=== PATIENT | female | born 1965 | race Caucasian/White ===

== ENCOUNTER 2017-09-03 12:16 | Inpatient (IN) ==
[2017-09-03] MEDS ORDERED: ZOFRAN 4 MG/2 ML IVP PRN (12:36)
[2017-09-03] MEDS ORDERED: DEMEROL 25 MG/ML SYRINGE IVP SCH (13:00)
[2017-09-03 13:06] LABS: BASOPHILS % (AUTO) 0.7 % (0.0-3.0); EOSINOPHILS # (AUTO) 0.1 K/ul (0.0-0.7); EOSINOPHILS % (AUTO) 3.1 % (0.0-7.0); HEMATOCRIT 40.8 % (37.0-47.0); HEMOGLOBIN 13.9 g/dl (12.0-16.0); IMMATURE GRANULOCYTE % (AUTO) 0.2 % (0.0-5.0); LYMPHOCYTES # (AUTO) 2.2 K/uL (0.60-3.4); LYMPHOCYTES % (AUTO) 51.2 (10.0-50.0); MEAN CORPUSCULAR HEMOGLOBIN 29.3 pg (27.0-31.0); MEAN CORPUSCULAR HGB CONC 34.1 (31.8-35.4); MEAN CORPUSCULAR VOLUME 85.9 fl (81.0-99.0); MONOCYTES # (AUTO) 0.3 K/uL (0.4-2.0); MONOCYTES % (AUTO) 7.1 (0-10); NEUTROPHILS # (AUTO) 1.6 K/ul (2.0-6.9); NEUTROPHILS % (AUTO) 37.7; PLATELET COUNT 192 10^3/uL (140-440); RED BLOOD COUNT 4.75 10^6/ul (4.20-5.40)
[2017-09-03 13:21] VITALS: BMI 39.4
[2017-09-03 13:26] LABS: ALBUMIN 3.9 g/dL (3.4-5.0); ALBUMIN/GLOBULIN RATIO 1.18; ANION GAP 13.9; BILIRUBIN,TOTAL 0.41 mg/dL (0.00-1.20); BUN/CREATININE RATIO 14.47; CALCIUM 9.8 mg/dL (8.2-10.2); CREATININE 0.76 mg/dL (0.60-1.30); POTASSIUM 3.9 mmol/L (3.5-5.10); TOTAL PROTEIN 7.2 g/dL (6.4-8.2)
[2017-09-03] MEDS: CARAFATE PO SCH ×3 (14:06→20:03)
[2017-09-03] MEDS: PROTONIX IV IVP SCH ×2 (14:06→20:08)
[2017-09-03] MEDS: LOVENOX SUBCUT SCH (14:07)
[2017-09-03] MEDS: SODIUM CHLORIDE 1,000 ML IV SCH (14:07)
[2017-09-03] MEDS: DEMEROL 25 MG/ML VIAL IVP SCH ×2 (14:07→17:46)
--- NOTE | 2017-09-03 14:59 | CT ---
EXAM: CT ABDOMEN AND PELVIS HISTORY: Mid abdominal pain and bloating for 3 days. Previous appendectomy and hysterectomy. TECHNIQUE: CT abdomen and pelvis without intravenous contrast. Images were reconstructed using 5 mm section thickness. Reformations were prepared. COMPARISON: None FINDINGS: Diagnostic limitations exist without including contrast enhanced images. No focal hepatic or splenic lesions identified. Gallbladder, pancreas and adrenal glands appear normal. The kidneys and ureter s appear normal. Minimal atherosclerotic disease. Stomach appears normal. No appendix is identified consistent with given history. A few loops of mini felecia fluid dilated small bowel with a few scattered air-fluid levels. No excess fecal retention. C olon caliber was within normal limits. No uterus was identified. Urinary bladder appear normal. No ascites or inflammatory infiltration of the abdominal fat. No ventral abdominal wall hernia. The bones reveal stabilization hardware at the lumbosacral junctio n. At least mild bilateral sacroiliitis is suggested. Lung bases are free of infiltrate. No pneumo peritoneum is seen. IMPRESSION: A few loops of minimally fluid dilated small bowel with a few scattered air-fluid level s. This is nonspecific and could indicate mild ileus or early enteritis. No current evidence of antoni l obstruction. Exam otherwise within normal limits.
[2017-09-03 15:47] LABS: BILIRUBIN,URINE Negative (NEGATIVE); KETONES,URINE Negative (NEGATIVE); LEUKOCYTE ESTERASE ,URINE 2+ (NEGATIVE); NITRITE,URINE Negative (NEGATIVE); PROTEIN,URINE Negative (NEGATIVE); URINE, BLOOD Negative (NEGATIVE)
[2017-09-03 15:51] LABS: ADD URINE MICROSCOPIC YES
[2017-09-03 15:52] LABS: BACTERIA,URINE 1+ (NOT PRESENT)
[2017-09-03] MEDS: GI COCKTAIL PO PRN (17:46)
[2017-09-03 20:06] LABS: TROPONIN I 0.011 ng/ml (0.0000-0.4000)
[2017-09-04] MEDS: GI COCKTAIL PO PRN ×3 (00:11→17:21)
[2017-09-04] MEDS: DEMEROL 25 MG/ML VIAL IVP SCH ×4 (00:11→17:59)
[2017-09-04] MEDS: SODIUM CHLORIDE 1,000 ML IV SCH ×2 (03:29→17:21)
[2017-09-04 05:00] LABS: BASOPHILS % (AUTO) 0.8 % (0.0-3.0); EOSINOPHILS # (AUTO) 0.1 K/ul (0.0-0.7); EOSINOPHILS % (AUTO) 3.7 % (0.0-7.0); HEMATOCRIT 37.3 % (37.0-47.0); IMMATURE GRANULOCYTE % (AUTO) 0.3 % (0.0-5.0); LYMPHOCYTES # (AUTO) 2.3 K/uL (0.60-3.4); LYMPHOCYTES % (AUTO) 59.5 (10.0-50.0); MEAN CORPUSCULAR HEMOGLOBIN 29.9 pg (27.0-31.0); MEAN CORPUSCULAR HGB CONC 34.9 (31.8-35.4); MEAN CORPUSCULAR VOLUME 85.7 fl (81.0-99.0); MONOCYTES # (AUTO) 0.2 K/uL (0.4-2.0); MONOCYTES % (AUTO) 6.1 (0-10); NEUTROPHILS # (AUTO) 1.1 K/ul (2.0-6.9); NEUTROPHILS % (AUTO) 29.6; PLATELET COUNT 171 10^3/uL (140-440); RED BLOOD COUNT 4.35 10^6/ul (4.20-5.40); WHITE BLOOD COUNT 3.78 K/ul (4.6-10.2)
[2017-09-04 05:26] LABS: ALBUMIN 3.4 g/dL (3.4-5.0); ALBUMIN/GLOBULIN RATIO 1.21; ANION GAP 9.1; BILIRUBIN,TOTAL 0.44 mg/dL (0.00-1.20); BUN/CREATININE RATIO 11.76; CALCIUM 9.4 mg/dL (8.2-10.2); CREATININE 0.68 mg/dL (0.60-1.30); POTASSIUM 4.1 mmol/L (3.5-5.10); TOTAL PROTEIN 6.2 g/dL (6.4-8.2)
[2017-09-04 05:34] LABS: TROPONIN I 0.011 ng/ml (0.0000-0.4000)
[2017-09-04] MEDS: CARAFATE PO SCH ×4 (05:42→20:20)
[2017-09-04] MEDS: LOVENOX SUBCUT SCH (09:09)
[2017-09-04] MEDS: PROTONIX IV IVP SCH ×2 (09:09→20:20)
[2017-09-05] MEDS: DEMEROL 25 MG/ML VIAL IVP SCH ×4 (00:49→18:03)
[2017-09-05 05:16] LABS: BASOPHILS % (AUTO) 0.5 % (0.0-3.0); EOSINOPHILS # (AUTO) 0.1 K/ul (0.0-0.7); EOSINOPHILS % (AUTO) 2.3 % (0.0-7.0); HEMATOCRIT 36.8 % (37.0-47.0); HEMOGLOBIN 12.8 g/dl (12.0-16.0); LYMPHOCYTES # (AUTO) 2.1 K/uL (0.60-3.4); LYMPHOCYTES % (AUTO) 52.9 (10.0-50.0); MEAN CORPUSCULAR HEMOGLOBIN 29.4 pg (27.0-31.0); MEAN CORPUSCULAR HGB CONC 34.8 (31.8-35.4); MEAN CORPUSCULAR VOLUME 84.4 fl (81.0-99.0); MONOCYTES # (AUTO) 0.3 K/uL (0.4-2.0); MONOCYTES % (AUTO) 6.6 (0-10); NEUTROPHILS # (AUTO) 1.5 K/ul (2.0-6.9); NEUTROPHILS % (AUTO) 37.7; PLATELET COUNT 160 10^3/uL (140-440); RED BLOOD COUNT 4.36 10^6/ul (4.20-5.40); WHITE BLOOD COUNT 3.95 K/ul (4.6-10.2)
[2017-09-05 05:40] LABS: ALBUMIN 3.3 g/dL (3.4-5.0); ALBUMIN/GLOBULIN RATIO 1.18; BILIRUBIN,TOTAL 0.37 mg/dL (0.00-1.20); BUN/CREATININE RATIO 11.11; CREATININE 0.63 mg/dL (0.60-1.30); TOTAL PROTEIN 6.1 g/dL (6.4-8.2)
[2017-09-05] MEDS: CARAFATE PO SCH ×4 (05:42→22:06)
[2017-09-05] MEDS: SODIUM CHLORIDE 1,000 ML IV SCH ×2 (05:42→22:08)
[2017-09-05] MEDS: PROTONIX IV IVP SCH ×2 (09:42→22:06)
[2017-09-05] MEDS: LOVENOX SUBCUT SCH (09:45)
[2017-09-05] MEDS: GI COCKTAIL PO PRN (14:52)
[2017-09-06] MEDS: DEMEROL 25 MG/ML VIAL IVP SCH ×2 (01:18→05:46)
[2017-09-06] MEDS: CARAFATE PO SCH (05:46)
[2017-09-06 06:27] VITALS: BP 114/76; TEMP 98
[2017-09-06] MEDS: PROTONIX IV IVP SCH (08:12)
[2017-09-06] MEDS: LOVENOX SUBCUT SCH (08:12)
--- NOTE | 2017-09-08 07:34 | DS ---
DATE OF SERVICE: 09/06/17 FINAL DIAGNOSIS: 1. Intractable nausea and vomiting 2. Acute gastritis 3. History of heart murmur 4. Hypertension 5. History of pancreatitis 6. Rheumatoid arthritis 7. Diabetes DISCHARGE INSTRUCTIONS: Discharge the patient home. Continue home medications. Will followup at the [facility] within one week. MEDICATIONS AT DISCHARGE: Carisoprodol Diltiazem Lasix Hydrocodone Metformin Zofran Paroxetine Elidel Pravachol NEW PRESCRIPTIONS: Protonix 40mg Po daily Carafate 1 gram AC and HS Zofran 4mg twice a day for 10 days. DIET INSTRUCTIONS: Soft diet for 2-3 days. ACTIVITY: As much as tolerated. SMOKING: Former Smoker DISEASE SPECIFIC EDUCATION: Gastritis Intractable nausea and vomiting Needing for endoscopy been discussed and verbalized understanding. HOSPITAL COURSE: Otilia Feliciano who is a 52 year old female came to the office for the sever abdominal pain and nausea and not able to keep anything down. The patient has a history of pancreatitis and gastritis for which the patient was worried and going to get evaluated. In review of epigastric pain 10 out of 10 I admitted the patient from the office directly. Amylase and Lipase was normal. CT of abdomen and pelvis showed ileus like kind of picture. The patient was kept NPO and started on the Protonix and Carafate. GI cocktail helped the patient. Then advanced the clear liquids slowly and she tolerated that well without any complications but still she kept having that nausea feeling. Soft diet was tolerated well. Meanwhile the patient was up and about and did not have anymore vomiting. As patient was doing good at that time the patient being discharged home. Advised strictly continue with the soft diet for 3-4 days. Continue Carafate, Protonix and Zofran as needed. TIME SPENT: MORE THAN 55 MINUTES. MTDD
--- NOTE | 2017-09-08 09:46 | PN ---
DATE OF SERVICE: 09/05/17 SUBJECTIVE: The patient was admitted with acute gastritis and the intractable gastritis. The patient was admitted from the [facility] directly as the patient was not able to keep anything down and nausea intractable. CT scan did show the ileus like picture. The patient was kept NPO and started on the Carafate, GI cocktail and Demerol which did help the patient. Clear liquids were started and then advanced to the soft diet which she tolerated. Did not have any problems. Amylase and Lipase was negative. The patient was feeling better today. REVIEW OF SYSTEMS: CONSTITUTIONAL: No fever, no chills. HEENT: Normal. ENDOCRINE: No weight gain, no weight loss. CVS: No angina symptoms. No CHF symptoms. No palpitations. No atypical chest pain for CAD. No shortness of breath. No PND, no orthopnea. RESPIRATORY: No cough, no hemoptysis. GI: No nausea, no vomiting. No abdominal pain. : No hematuria. No polyuria. MUSCULOSKELETAL:. No joint swelling. PSYCHIATRIC: Not anxious. No depression. No suicidal thoughts. No homicidal thoughts. SKIN: Intact. No rash. PHYSICAL EXAMINATION: V/S: Blood pressure 123/83, respiratory rate 16, heart rate 61, temperature 99.6. HEENT: Normocephalic, atraumatic. Mucosa dry. Mild epigastric discomfort. NECK: Supple. No JVD, no carotid bruit. No lymphadenopathy. LUNGS: Clear to auscultation. No rales or rhonchi. HEART: S1, S2 normal. No S3. No murmur, gallop or regurgitation. ABDOMEN: Soft, nontender. Bowel sounds active. No rigidity. No rebound or guarding. No CVA tenderness. EXTREMITIES: No clubbing, cyanosis or pedal edema. MUSCULOSKELETAL: No joint swelling. NEUROLOGIC: Awake, alert, oriented times three. No focal deficit. LYMPHATIC: No lymph nodes palpable. SKIN: Intact. LABS: Sodium 142, potassium 4.0, chloride 112, bicarb 23, BUN 87, creatinine 0.63, WBC 3.95, hgb 12.8, hct 36.8, plt count 160. ASSESSMENT: 1. Acute gastritis 2. Intractable nausea and vomiting 3. History of CAD 4. Hypertension 5. Peptic ulcer disease 6. Osteoarthritis 7. DJD spine 8. Rheumatoid arthritis PLAN: 1. Advance diet to the soft diet 2. Continue Zofran, Carafate and Protonix 3. Out of bed to chair activity as tolerated TIME SPENT: More than 35 minutes MTDD
--- NOTE | 2017-09-08 11:18 | PN ---
DATE OF SERVICE: 09/04/17 SUBJECTIVE: The patient was admitted with admitted with acute gastritis and nausea, vomiting and intractable abdominal pain. CT of abdomen pelvis, amylase and lipase are normal. Still having nausea feeling. GI cocktail is helping. Asked to take two time in the night. REVIEW OF SYSTEMS: CONSTITUTIONAL: No fever, no chills. HEENT: Normal. ENDOCRINE: No weight gain, no weight loss. CVS: No angina symptoms. No CHF symptoms. No palpitations. No atypical chest pain for CAD. No shortness of breath. No PND, no orthopnea. RESPIRATORY: No cough, no hemoptysis. GI: No nausea, no vomiting. No abdominal pain. : No hematuria. No polyuria. MUSCULOSKELETAL:. No joint swelling. PSYCHIATRIC: Not anxious. No depression. No suicidal thoughts. No homicidal thoughts. SKIN: Intact. No rash. PHYSICAL EXAMINATION: V/S: Blood pressure 127/81, respiratory rate 20, heart rate 61 and temperature 97.4 with saturation 98%. HEENT: Normocephalic, atraumatic. Mucosa dry. Pallor positive. No icterus. NECK: Supple. No JVD, no carotid bruit. No lymphadenopathy. LUNGS: Decreased and basilar crackles. Clear to auscultation. No rales or rhonchi. HEART: S1, S2 normal. No S3. No murmur, gallop or regurgitation. ABDOMEN: Soft, Tender epigastric area. Bowel sounds active. No rigidity. No rebound or guarding. No CVA tenderness. EXTREMITIES: No clubbing, cyanosis or pedal edema. MUSCULOSKELETAL: No joint swelling. NEUROLOGIC: Awake, alert, oriented times three. No focal deficit. LYMPHATIC: No lymph nodes palpable. SKIN: Intact. LABS: WBC 3.78, hgb 13.0, hct 37.5, plt count 771, sodium 141, potassium 4.1, chloride 110, bicarb 26, BUN 8, creatinine 0.68 and glucose 112. ASSESSMENT: 1. Intractable abdominal pain 2. Acute gastritis 3. History of peptic ulcer disease 4. Hypertension 5. GERD 6. History of Osteoarthritis 7. Rheumatoid arthritis 8. Diabetes Mellitus PLAN: 1. Clear liquids 2. Continue the Carafate, Protonix and GI cocktail 3. IV fluids at 75ml per hour 4. Lovenox for the DVT prophylaxis Follow the patient in daily rounds. TIME SPENT: More than 35 minutes MTDD
== END 2017-09-06 09:30 | disposition home or self-care (01) | DRG 392 ==
LOC: MEDSURG B 12:16
PROVIDERS: ADMIT Emergency Medicine; ATTEND Emergency Medicine
DX: R11.2 Nausea with vomiting, unspecified (principal); K29.00 Acute gastritis without bleeding; R01.1 Cardiac murmur, unspecified; I10 Essential (primary) hypertension; E11.9 Type 2 diabetes mellitus without complications; K27.7 Chronic peptic ulcer, site unspecified, without hemorrhage or perforation; K21.9 Gastro-esophageal reflux disease without esophagitis; M06.9 Rheumatoid arthritis, unspecified; M19.90 Unspecified osteoarthritis, unspecified site; Z87.19 Personal history of other diseases of the digestive system; Z79.4 Long term (current) use of insulin; Z79.899 Other long term (current) drug therapy
CPT/HCPCS: 36415; 80053; 81001; 82150; 82550; 82962; 83690; 84484; 85025; 87086; 93005; 93010